=== PATIENT | female | born 2000 | race Caucasian/White ===

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

== ENCOUNTER 2023-10-02 14:31 | Outpatient (CLI) | payer OTHER | END 2023-10-02 14:32 | disposition home or self-care (01) | LOC: NAV RAD 14:31 | PROVIDERS: ATTEND Family Medicine | DX: M79.89 Other specified soft tissue disorders (principal); S62.653A Nondisplaced fracture of middle phalanx of left middle finger, initial encounter for closed fracture ==

== ENCOUNTER 2024-09-27 13:43 | Outpatient (CLI) | payer OTHER | END 2024-09-27 13:44 | disposition home or self-care (01) | LOC: NAV RAD 13:43 | PROVIDERS: ATTEND Nurse Practitioner Family | DX: M25.571 Pain in right ankle and joints of right foot (principal); M79.89 Other specified soft tissue disorders ==